=== PATIENT | male | born 1960 | race Native Hawaiian/Other Pacific Islander ===

== ENCOUNTER → 2021-05-29 | Day surgery (SDC) | payer OTHER ==
[~2021-05-29] VITALS: Ht 175.3 cm; Wt 81.6 kg
[~2021-05-29] MED LIST: ALISKIREN300 MG PO; ALKA-SELTZER PL25 MG PO; COZAAR100 MG PO; FLEXERIL10 MG PO; NAPROXEN500 MG PO; NORVASC5 MG PO; PERCOCET 5-3251 EACH PO
[2021-05-29 08:38] LABS: HCT 45.9 % (42.0-52.0); HGB 14.6 g/dl (13.2-18.0); MCH 31.1 pg (25.0-31.0); MCHC 31.8 g/dL (32.0-36.0); MCV 97.7 fL (78.0-100.0); MPV 9.5 fL (6.0-9.5); RBC 4.7 M/uL (4.70-6.00); RDW 14.5 % (11.5-14.0); WBC 5.8 K/uL (4.0-10.5)
[2021-05-29 08:59] LABS: ALBUMIN 3.6 g/dL (3.4-5.0); BILIRUBIN - TOTAL 0.7 mg/dL (0.2-1.0); BUN/CREAT RATIO (CALC) 27.8 RATIO; CREATININE 1.15 mg/dL (0.67-1.17); GLOBULIN (CALCULATION) 3.8 g/dL; POTASSIUM 4.1 mmol/L (3.5-5.1); TOTAL PROTEIN 7.4 g/dL (6.4-8.2)
== END | disposition home or self-care (01) ==
LOC: FAS 07:30
PROVIDERS: Surgery
DX: Z12.11 Encounter for screening for malignant neoplasm of colon (principal); K57.30 Diverticulosis of large intestine without perforation or abscess without bleeding; I10 Essential (primary) hypertension; E78.00 Pure hypercholesterolemia, unspecified; Z79.899 Other long term (current) drug therapy
CPT/HCPCS: 36415; 80053; J2704; J7120